=== PATIENT | male | born 1950 | race African-American/Black ===

== ENCOUNTER → 2019-01-09 11:37 | Outpatient (CLI) | payer OTHER | END | disposition home or self-care (01) | LOC: D.RAD 11:37 | PROVIDERS: ATTEND Internal Medicine Hematology & Oncology | DX: D47.2 Monoclonal gammopathy (principal) ==

== ENCOUNTER → 2019-02-02 07:59 | Outpatient (CLI) | payer OTHER ==
[~2019-02-02] VITALS: Ht 182.9 cm; Wt 96.8 kg
[~2019-02-02 07:59] MED LIST: ACETAMINOPHEN500 M1 PO; ALBUTEROL SULF8.5 GM INH; COZAAR25 MG PO; FISH OIL 1,0001 CA1 PO; GLUCOPHAGE1000 MG PO; LISINOPRIL10 MG PO; NORVASC10 MG PO; SINGULAIR10 MG PO; SYMBICORT 16010.2 GM INH; VITAMIN D31000 UNIT PO; ZOCOR40 MG PO
[2019-02-02 08:36] LABS: BASOPHILS 0.3 % (0-2); EOSINOPHILS 1.9 % (0-7); HEMATOCRIT 37.4 % (42.0-54.0); HEMOGLOBIN 12.5 g/dL (13.5-17.5); IMMATURE GRANULOCYTES 0.1 % (0-5); LYMPHOCYTES 19.4 % (15-50); MCH 30.1 pg (26.0-34.0); MCHC 33.4 g/dL (31.0-37.0); MCV 90.1 fL (80.0-100.0); MEAN PLATELET VOLUME 10.6 fL (7.4-10.4); MONOCYTES 6.6 % (2-11); NEUTROPHILS 71.7 % (40-80); PLATELET COUNT 294 10x3/uL (130-400); RBC 4.15 10x6/uL (4.20-6.10); RDW 13.8 % (11.5-14.5); WBC 9.1 10x3/uL (4.8-10.8)
[2019-02-02 08:57] LABS: ANION GAP 11.8 mmol/L (8-16); CALCIUM 8.2 mg/dL (8.5-10.1); CARBON DIOXIDE 28.2 mmol/L (21.0-32.0)
[2019-02-02 09:01] LABS: APTT 28.9 SECONDS (22.8-39.4); INR 0.88 (0.85-1.17); PROTIME 11.5 SECONDS (11.6-15.0)
[2019-02-02 09:08] VITALS: BP 174/101; Ht 182.9 cm; Wt 96.8 kg
--- NOTE | 2019-02-02 10:51 | NUR ---
1040-REC'D FROM IR. ALERT AND AWAKE,DENIES PAIN,VSS. DRESSING TO BACK CDI. IV PATENT AT K[facility]. AT BEDSIDE.CL IN EASY REACH.
--- NOTE | 2019-02-02 10:52 | NUR ---
1050-COFFEE PER PT REQUEST TO ROOM. DENIES PAIN.
== END | disposition home or self-care (01) ==
LOC: D.SP 07:59 → D.CT 11:00
PROVIDERS: Specialist; ATTEND Internal Medicine Hematology & Oncology
DX: D47.2 Monoclonal gammopathy (principal)

== ENCOUNTER → 2019-02-21 13:23 | Outpatient (CLI) | payer OTHER ==
[2019-02-02 09:08] VITALS: BMI 28.9
== END | disposition home or self-care (01) ==
LOC: D.RAD 13:23
PROVIDERS: ATTEND Internal Medicine Hematology & Oncology
DX: D47.2 Monoclonal gammopathy (principal)